=== PATIENT | male | born 1975 | race African-American/Black ===

== ENCOUNTER 2016-05-06 17:17 | Emergency (ER) ==
--- NOTE | 2016-05-06 18:35 | PROVIDER DOCUMENTATION ---
HPI-Abdominal Pain/GI Problem - General Chief Complaint: Abdominal Pain Stated Complaint: ABD PAIN Time Seen by Provider: 05/06/16 18:29 Source: patient Allergies/Adverse Reactions: Patient Allergies Allergy/AdvReac Type Severity Reaction Status Date / Time latex Allergy HIVES Verified 02/27/15 14:54 - History of Present Illness-ABD Nature of Presenting Problems: 40 y/o AAM c/o llq pain that started this morning. Has a loose stool yesterday. Pain is aching, constant, non radiating, no aggravating or alleviating factors. HE is still eating, but having some nausea, no vomiting, no diarrhea today. Denies fevers, chills or weight loss. denies dysuria, hematuria, frequency or urgency. Denies cough, congestion or sob. Patient does a lot of heavy lifting at his job at night. Abdominal Pain Onset Location: reports: LLQ Pain Radiation: reports: no radiation Quality of Pain: reports: aching Onset/Duration: reports: 4-6 hours ago Timing: reports: still present Exposure to sick contacts?: No Review of Systems - Adult - REVIEW OF SYSTEMS - ADULT Constitutional: reports: see HPI, fatique. denies: chills, fever Eyes: reports: no symptoms reported. denies: blurred vision, double vision, eye pain Ears, Nose, Mouth & Throat: reports: no symptoms reported. denies: ear pain, nose pain, throat pain Cardiovascular: reports: no symptoms reported. denies: chest pain, palpitations Respiratory: reports: no symptoms reported. denies: cough, shortness of breath Gastrointestinal: reports: see HPI, abdominal pain, nausea. denies: constipation, diarrhea, poor appetite, vomiting Genitourinary: reports: no symptoms reported. denies: dysuria, discharge, frequency, flank pain, hematuria, hesitency, incontinence, urgency Musculoskeletal: reports: no symptoms reported. denies: muscle aches Integumentary: reports: no symptoms reported. denies: rash Neurological: reports: no symptoms reported. denies: headache/migraines Psychiatric: reports: no symptoms reported Endocrine: reports: no symptoms reported Hematologic/Lymphatic: reports: no symptoms reported Allergic/Immunologic: reports: no symptoms reported All Other Systems: Reviewed and Negative Past History - Adult - PAST MEDICAL HISTORY-ADULT Review of Records: reports: Old Records Reviewed, Nursing Assessment Review, Medications Reviewed, Social history reviewed & non-contributory. Major Childhood Illnesses: reports: denies history Cardiovascular: reports: denies history Respiratory: reports: denies history Gastrointestinal: reports: denies history Genitourinary: reports: denies history Musculoskeletal: reports: denies history Neurological: reports: denies history Endocrine/Immune: reports: denies history Other Conditions: reports: denies history - PRIOR SURGERIES/PROCEDURES Surgical/Procedure History: reports: none - IMMUNIZATION STATUS Childhood Immunizations: See Nurse Assessment Flu Vaccine: See Nurse Assessment - FAMILY HISTORY Family History: reviewed, not pertinent - SOCIAL HISTORY Smoking: denies Substance Use: none/never Alcohol Use Frequency: never Physical Exam-General - PHYSICAL EXAM-ADULT Initial Vital Signs Reviewed: Yes - CONSTITUTIONAL General Appearance: appears well, alert, no apparent distress - EYES Eyes: PERRL/EOMI, pink conjunctivae - HEAD, EARS, NOSE, MOUTH & THROAT HENMT: normocephalic/atraumatic, moist mucous membranes - NECK Neck: non-tender, full range of motion, supple, normal inspection. negative: lymphadenopathy - RESPIRATORY Respiratory: chest non-tender, lungs clear, normal breath sounds, no pleuratic chest pain, no respiratory distress, no accessory muscle use. negative: respiratory distress, decreased breath sounds, accessory muscle use, crackles, rales, rhonchi, wheezing - CARDIOVASCULAR Cardiovascular: normal peripheral pulses, regular rate, rhythm, no edema - GASTROINTESTINAL (ABDOMEN) Abdominal Exam: normal bowel sounds, soft, no organomegaly, no pulsatile mass, tenderness (generalized). negative: abdominal bruit, abnormal bowel sounds, distended, guarding, rigid, rebound - LYMPHATIC Lymphatic: no adenopathy - MUSCULOSKELETAL Back Exam: normal inspection, no CVA tenderness. negative: CVA tenderness Extremity: normal range of motion, non-tender, normal gait Peripheral Pulses: radial (R): 2+, radial (L): 2+ - SKIN Integumentary: normal color, normal turgor, warm/dry - NEUROLOGIC Neurologic: grossly normal, no motor/sensory deficits - PSYCHIATRIC Psych/Mental Status: normal mood/affect, normal thought content, normal thought process, oriented x 3 Progress - PLAN OF CARE/RESULTS Progress/Plan/Lab Results: Vital Signs Temp Pulse Resp BP Pulse Ox 05/06/16 18:43 98.3 F 77 18 142/85 100 05/06/16 17:25 97.8 F 76 20 118/84 latex Allergy (Verified 02/27/15 14:54) HIVES Laboratory 05/06/16 05/06/16 05/06/16 18:38 18:38 18:29 WBC 9.56 RBC 5.09 Hgb 15.3 Hct 44.1 MCV 86.6 MCH 30.1 MCHC 34.7 RDW Std Deviation 14.7 H Plt Count 201 MPV 9.6 Immature Gran % (Auto) 0.1 Neut % (Auto) 67.2 Lymph % (Auto) 22.9 [place] % (Auto) 8.3 Eos % (Auto) 1.3 Baso % (Auto) 0.2 Immature Gran # (Auto) 0.01 Neut # (Auto) 6.43 Lymph # (Auto) 2.19 [place] # (Auto) 0.79 H Eos # (Auto) 0.12 Baso # (Auto) 0.02 Sodium 139 Potassium 3.6 Chloride 102 Carbon Dioxide 27 Anion Gap 11 BUN 10 Creatinine 0.9 Estimated GFR/1.73 m2 > 60 BUN/Creatinine Ratio 11 Glucose 98 Calculated Osmolality 277 Calcium 9.6 Total Bilirubin 0.30 AST 16 ALT 12 Alkaline Phosphatase 88 Total Protein 7.7 Albumin 4.7 Globulin 3.0 Albumin/Globulin Ratio 2.0 Urine Source CLEAN CATCH Urine Color YELLOW Urine Clarity CLEAR Urine pH 7.0 Ur Specific [place] 1.010 Urine Protein NEGATIVE Urine Ketones NEGATIVE Urine Blood NEGATIVE Urine Nitrite NEGATIVE Urine Bilirubin NEGATIVE Urine Urobilinogen NORMAL Urine WBC 1+ A Urine Glucose NEGATIVE Orders Category Date Time Status flat [ABDOMEN FLAT/UPRIGHT] [RAD] Stat Exams 05/06/16 18:31 Taken CBC WITH ELECTRONIC DIFF [HEME] Stat Lab 05/06/16 18:38 Completed COMPREHENSIVE METABOLIC PANEL [CHEM] Stat Lab 05/06/16 18:38 Completed UA [URINALYSIS PL W/POSS RFLX CULT] [URINALYSIS] Stat Lab 05/06/16 18:29 Results - XRAY 1 XRAY: Bilateral XRAY Study: Abdomen Impression: Normal (constipation, otherwise NAD) Departure - Departure Time of Disposition Order: 19:31 DIAGNOSIS: Constipation by delayed colonic transit UTI (urinary tract infection) Qualifiers: Urinary tract infection type: acute cystitis Hematuria presence: without hematuria Qualified Code(s): N30.00 - Acute cystitis without hematuria Disposition: HOME 01 Certified Medical Emergency: Emergent Condition: Stable Additional Instructions: Follow up with your primary care physician ED Follow Up Instructions: You have been treated by a care provider in the Emergency Department. These instructions are being provided to you so you can have an understanding of how to care for yourself upon discharge. Upon discharge from the Emergency Department, you are responsible for making arrangements for follow-up care by a physician of your choice. Take all prescribed medications as directed. Return to the Emergency Department immediately for any new or worsening symptoms. You may call the Physician Referral phone number at [phone] to obtain a list of Physicians who are taking new patients. Prescriptions: Sulfamethoxazole/Trimethoprim [Bactrim Ds Tablet] 1 each PO BID #10 tablet Bisacodyl [Dulcolax] 10 mg MI QHS #20 supp Polyethylene Glycol 3350 [Miralax] 510 gm PO DAILY #1 powder Attestation - Physician/ Mid-level Attestation Patient care was provided by Mid-level provider ([employer] DEVICE SCIENTIST/PA):: Yes Mid-level provider:: Nancy Mora Mid-level documentation review:: The Mid-level provider documentation, treatment plan and medical decision making was reviewed by the physician who agrees with all treatment and medical decision making by the MLP.
[2016-05-06 18:57] LABS: MANUAL DIFF NEEDED? NO
[2016-05-06 18:58] LABS: BASO% 0.2 % (0.0-0.8); EOS# 0.12 X1000 (0.0-0.7); EOS% 1.3 % (0.0-10.0); HEMATOCRIT 44.1 % (42.0-52.0); HEMOGLOBIN 15.3 g/dL (14.0-18.0); IMM GRAN# 0.01 X1000 (0.0-0.04); IMM GRAN% 0.1 % (0.0-0.5); LYMPH# 2.19 X1000 (1.2-3.4); LYMPH% 22.9 % (20.5-51.1); MCH 30.1 PG (27-31); MCHC 34.7 g/dL (33-37); MCV 86.6 FL (81-99); MONO# 0.79 X1000 (0.11-0.59); MONO% 8.3 % (1.7-9.3); MPV 9.6 FL (7.4-10.4); NEUT% 67.2 % (42.2-75.2); PLT 201 X1000 (130-400); RBC 5.09 XMIL (4.7-6.1)
[2016-05-06 19:01] LABS: URINE SOURCE CLEAN CATCH
[2016-05-06 19:16] LABS: BILIRUBIN URINE NEGATIVE (NEGATIVE); BLOOD URINE NEGATIVE (NEGATIVE); CLARITY CLEAR (CLEAR); COLOR YELLOW; GLUCOSE URINE NEGATIVE (NEGATIVE); LEUKOCYTES URINE 1+ (NEGATIVE); NITRITE URINE NEGATIVE (NEGATIVE); PROTEIN URINE NEGATIVE (NEGATIVE); UROBILINOGEN URINE NORMAL
[2016-05-06 19:28] LABS: AGAP 11; ALBUMIN 4.7 g/dL (3.5-5.0); ALKALINE PHOSPHATASE 88 U/L (32-122); BUN 10 mg/dL (8-22); CALCIUM 9.6 mg/dL (8.8-10.2); CHLORIDE 102 mmol/L (98-107); COSMO 277; GOT 16 U/L (10-34); GPT 12 U/L (10-44); POTASSIUM 3.6 mmol/L (3.5-5.1); SODIUM 139 mmol/L (136-145); TCO2 27 mmol/L (25-35); TOTAL PROTEIN 7.7 g/dL (6.3-8.3)
[2016-05-06 19:39] LABS: URINE CULTURE PL NEEDED? YES; URINE EPITHELIAL CELLS <10 /HPF (<10); URINE RBC <10 /HPF (<10); URINE WBC <10 /HPF (<10)
[2016-05-06 19:54] VITALS: BP 133/78
--- NOTE | 2016-05-07 10:53 | Diag Imaging Result Document ---
PROCEDURE NAME: ABDOMEN FLAT/UPRIGHT - 05/06/2016 TWO-VIEW ABDOMEN: INDICATION: Left lower quadrant pain. FINDINGS: There is [id number] constipation. No bowel distention. No organomegaly. No evidence for free air. IMPRESSION: Mild constipation.
== END 2016-05-06 19:55 | disposition home or self-care (01) ==
LOC: P.ED 17:17
DX: N30.00 Acute cystitis without hematuria (principal); K59.09 Other constipation; R10.32 Left lower quadrant pain; R11.0 Nausea; R53.83 Other fatigue
CPT/HCPCS: 74020; 80053; 81001; 85025; 87088; 99283

== ENCOUNTER 2016-07-14 14:34 | Emergency (ER) ==
[2016-07-14 14:40] VITALS: BP 131/71
--- NOTE | 2016-07-14 15:51 | Diag Imaging Result Document ---
PROCEDURE NAME: CHEST-2 VIEWS - 07/14/2016 2 VIEWS THE CHEST: FINDINGS: There is a calcified granuloma in the superior segment of the right lower lobe. There is no evidence of acute cardiac or pulmonary disease, and no previous studies are available for comparison. IMPRESSION: No acute disease.
[2016-07-14] MEDS ORDERED: DECADRON IM ONE (16:12)
[2016-07-14] MEDS ORDERED: TORADOL IM ONE (16:12)
--- NOTE | 2016-07-14 16:13 | PROVIDER DOCUMENTATION ---
HPI-Musculoskeletal Pain/Inj - GENERAL Chief Complaint: General Adult Stated Complaint: CHEST PAIN/COUGH Time Seen by Provider: 07/14/16 15:57 Source: patient - HX OF PRESENT ILLNESS-MUSKULOSKELTAL Nature of Presenting Problem: 40 y/o AAM c/o chest wall pain, intermittent over the past 4-5 days. Denies sob. The pain is worse when he is moving or lifting. 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 Pain worse at night when he cannot distract himself. No pre-arrival treatments. Denies diaphoresis, nausea, vomiting, abdominal pain. Review of Systems - Adult - REVIEW OF SYSTEMS - ADULT Constitutional: reports: no symptoms reported. denies: chills, fever, fatique Eyes: reports: no symptoms reported. denies: decreased vision, blurred vision, double vision, eye pain Ears, Nose, Mouth & Throat: reports: no symptoms reported. denies: ear pain, nose pain, throat pain Cardiovascular: reports: chest pain (chest wall). denies: irregular heart rate , palpitations Respiratory: reports: no symptoms reported. denies: cough, shortness of breath , wheezing Gastrointestinal: reports: no symptoms reported. denies: abdominal pain, diarrhea, nausea, vomiting Genitourinary: reports: no symptoms reported Musculoskeletal: reports: see HPI, muscle aches. denies: bone pain, back pain Integumentary: reports: no symptoms reported. denies: rash Neurological: reports: no symptoms reported. denies: headache/migraines Psychiatric: reports: no symptoms reported Endocrine: reports: no symptoms reported Hematologic/Lymphatic: reports: no symptoms reported Allergic/Immunologic: reports: no symptoms reported All Other Systems: Reviewed and Negative Past History - Adult - PAST MEDICAL HISTORY-ADULT Review of Records: reports: Old Records Reviewed, Nursing Assessment Review, Medications Reviewed Major Childhood Illnesses: reports: denies history Cardiovascular: reports: denies history Respiratory: reports: denies history Gastrointestinal: reports: denies history Genitourinary: reports: denies history Musculoskeletal: reports: denies history Neurological: reports: denies history Endocrine/Immune: reports: denies history Other Conditions: reports: denies history - PRIOR SURGERIES/PROCEDURES Surgical/Procedure History: reports: none - IMMUNIZATION STATUS Childhood Immunizations: See Nurse Assessment Flu Vaccine: See Nurse Assessment - FAMILY HISTORY Family History: reviewed, not pertinent - SOCIAL HISTORY Smoking: less than 1 pack/day Provider spent 3-5 mins advising pt. on dangers of tobacco.: Discussed manners to quit use, and f/u contacts for add'l counseling. Substance Use: none/never Alcohol Use Frequency: never Living Situation: family Physical Exam-Injury Related - Physical Exam-Injury Related Initial Vital Signs Reviewed: Yes General Appearance: appears well, alert, no apparent distress Eyes: PERRL/EOMI, pink conjunctivae Head, Ears, Nose, Mouth & Throat: normocephalic/atraumatic, moist mucous membranes Neck: non-tender, full range of motion, supple, normal inspection. negative: C- spine tenderness Respiratory: chest non-tender, lungs clear, normal breath sounds, no pleuratic chest pain, no respiratory distress, no accessory muscle use. negative: respiratory distress, decreased breath sounds, accessory muscle use, crackles, rales, rhonchi, stridor, wheezing Cardiovascular: normal peripheral pulses, regular rate, rhythm Chest/Breast: tenderness (reproducible chest wall tenderness along the sternumb of the right and left sides, spreadign to the the entire anterior chest) Abdominal Exam: normal bowel sounds, non tender, soft, no organomegaly, no pulsatile mass. negative: abdominal bruit, abnormal bowel sounds, distended, guarding, rigid, rebound, tenderness Extremity: normal gait Integumentary: normal color, warm/dry Neurologic: grossly normal, no motor/sensory deficits Psych/Mental Status: normal mood/affect, normal thought content, normal thought process - Glascow Coma Score Best Eye Response (Leonides): (4) open spontaneously Best Verbal Response (Leonides): (5) oriented Best Motor Response (Leonides): (6) obeys commands Progress - PLAN OF CARE/RESULTS Progress/Plan/Lab Results: Vital Signs Temp Pulse Resp BP Pulse Ox 07/14/16 14:36 98.2 F 82 16 131/71 99 latex Allergy (Verified 07/14/16 14:39) HIVES Cyclobenzaprine [Flexeril] 10 mg PO TID #20 tablet 07/14/16 Naproxen 500 mg PO BID PRN #30 tablet 07/14/16 Prednisone [Deltasone] 20 mg PO DIRECTED #12 tablet 07/14/16 Orders Category Date Time Status CHEST-2 VIEWS [RAD] Stat Exams 07/14/16 15:14 Draft Dexamethasone [Decadron] Med 07/14/16 16:12 Discontinued 4 mg IM NOW ONE Ketorolac [Toradol] Med 07/14/16 16:12 Discontinued 30 mg IM NOW ONE Departure - Departure Time of Disposition Order: 16:11 DIAGNOSIS: Costochondritis, acute Disposition: HOME 01 Certified Medical Emergency: Emergent Condition: Stable Additional Instructions: Follow up with your primary care physician ED Follow Up Instructions: You have been treated by a care provider in the Emergency Department. These instructions are being provided to you so you can have an understanding of how to care for yourself upon discharge. Upon discharge from the Emergency Department, you are responsible for making arrangements for follow-up care by a physician of your choice. Take all prescribed medications as directed. Return to the Emergency Department immediately for any new or worsening symptoms. You may call the Physician Referral phone number at [phone] to obtain a list of Physicians who are taking new patients. Prescriptions: Prednisone [Deltasone] 20 mg PO DIRECTED #12 tablet Cyclobenzaprine [Flexeril] 10 mg PO TID #20 tablet Naproxen 500 mg PO BID PRN #30 tablet PRN Reason: Pain Referrals: None,PCP [Primary Care Provider] - Attestation - Physician/ ANI Attestation Patient care was provided by Advanced Practice Provider:: Yes Advanced Practice Provider:: Nancy Mora Advanced Practice Provider documentation review:: The Mid-level provider documentation, treatment plan and medical decision making was reviewed by the physician who agrees with all treatment and medical decision making by the P.
== END 2016-07-14 16:40 | disposition home or self-care (01) ==
LOC: P.ED 14:34
DX: M94.0 Chondrocostal junction syndrome [Tietze] (principal); R07.89 Other chest pain; M79.1 Myalgia; F17.210 Nicotine dependence, cigarettes, uncomplicated; Z71.6 Tobacco abuse counseling
CPT/HCPCS: 71020; J1100; J1885